=== PATIENT | female | born 1995 | race Caucasian/White ===

== ENCOUNTER 2017-12-01 01:15 | Emergency (ER) | payer BC ==
[2017-12-01 03:36] LABS: URINE PH (Dip) POC 6.5 (5.0-8.5)
[2017-12-01 03:36] LABS: URINE BLOOD (Dip) POC Negative (NEGATIVE); URINE GLUCOSE (Dip) POC Negative (NEGATIVE); URINE KETONES (Dip) POC Negative (NEGATIVE); URINE LEUKOCYTE EST (Dip) POC Negative (NEGATIVE); URINE NITRITE (Dip) POC Negative (NEGATIVE); URINE TOTAL PROTEIN POC Negative (NEGATIVE)
[2017-12-01] MEDS: LIDOCAINE/MYLANTA 40 ML BTL PO (03:50)
[2017-12-01 04:03] LABS: ADD MAN DIFF? NO
[2017-12-01 04:08] LABS: WHITE BLOOD COUNT 8.7 10^3/ul (4.8-10.8)
[2017-12-01 04:08] LABS: BASOPHILS % 0.3 % (0.0-2.0); EOSINOPHILS # 0.1 10^3/ul (0.0-0.5); EOSINOPHILS % 1.6 % (0.0-7.0); HEMATOCRIT 40.8 % (37.0-47.0); LYMPHOCYTES # 1.4 10^3/ul (0.8-2.9); LYMPHOCYTES % 15.6 % (18.0-55.0); MEAN CORPUSCULAR HGB CONC 34.3 g/dl (32.0-37.0); MEAN CORPUSCULAR VOLUME 90.3 fl (72.0-104.0); MEAN PLATELET VOLUME 11.2 fl (7.4-10.4); MONOCYTE # 0.7 10^3/ul (0.3-0.9); MONOCYTES % 8.4 % (0.0-13.0); NEUTROPHIL # 6.4 10^3/ul (1.6-7.5); NEUTROPHILS % 73.8 % (30.0-74.0); PLATELET COUNT 260 10^3/UL (140-415); RED BLOOD COUNT 4.52 10^6/ul (4.20-5.40)
[2017-12-01 04:24] LABS: ALANINE AMINOTRANSFERASE 21 IU/L (13-69); ALBUMIN 4.8 g/dl (3.3-4.9); ALBUMIN/GLOBULIN RATIO 1.29; ALKALINE PHOSPHATASE 94 IU/L (42-121); ANION GAP 19 (8-16); ASPARTATE AMINO TRANSFERASE 20 IU/L (15-46); BILIRUBIN,INDIRECT 0.1 mg/dl (0-1.1); BILIRUBIN,TOTAL 0.1 mg/dl (0.2-1.3); BLOOD UREA NITROGEN 13 mg/dl (7-20); CARBON DIOXIDE 26 mmol/L (21-31); CHLORIDE 104 mmol/L (97-110); CREATININE 0.72 mg/dl (0.44-1.00); GLUCOSE 103 mg/dl (70-220); LIPASE 52 U/L (23-300); POTASSIUM 3.9 mmol/L (3.5-5.1); SODIUM 145 mmol/L (135-144); TOTAL PROTEIN 8.5 g/dl (6.1-8.1)
[2017-12-01] MEDS: KETOROLAC 15 MG INJ IV (05:19)
== END 2017-12-01 05:38 | disposition home or self-care (01) ==
LOC: E/R 01:15
DX: R10.13 Epigastric pain (principal)
CPT/HCPCS: 36415; 80053; 81003; 81025; 83690; 85025; 96374; 99284-25

== ENCOUNTER 2018-01-02 05:46 | Day surgery (SDC) | payer BC ==
[2018-01-02] MEDS ORDERED: MIDAZOLAM 1 MG/ML 2 ML INJ ×2 (07:43)
[2018-01-02] MEDS ORDERED: FENTAnyl 50 MCG/ML VIAL (07:43)
== END 2018-01-02 10:37 | disposition home or self-care (01) ==
LOC: GIL 05:46
DX: K21.9 Gastro-esophageal reflux disease without esophagitis (principal); K29.60 Other gastritis without bleeding
CPT/HCPCS: 43239; 84703; 88305; 88312

== ENCOUNTER 2018-03-21 09:15 | Emergency (ER) | payer BC ==
[2018-03-21] MEDS: ONDANSETRON 4 MG INJ IV (09:45)
[2018-03-21] MEDS: DIPHENHYDRAMINE 50 MG INJ IV (09:45)
[2018-03-21] MEDS: FAMOTIDINE 20 MG INJ IV (09:45)
[2018-03-21] MEDS: SOD CHLORIDE 0.9% 1,000 ML IV (09:45)
[2018-03-21] MEDS: METHYLPREDNISOLONE 125 MG INJ IV (09:46)
[2018-03-21] MEDS ORDERED: SOD CHLORIDE 0.9% 1,000 ML IV (10:00)
[2018-03-21] MEDS: IBUPROFEN 800 MG TAB PO (10:05)
== END 2018-03-21 10:51 | disposition home or self-care (01) ==
LOC: FTE 09:15
DX: J02.9 Acute pharyngitis, unspecified (principal)
CPT/HCPCS: 96374; 96375; 99284-25

== ENCOUNTER 2018-11-12 23:22 | Observation (INO) | payer BC ==
[2018-11-12 23:57] LABS: ADD MAN DIFF? NO
[2018-11-12] MEDS: CEFEPIME 2GM/50 ML (PMX) 50 ML IVPB (23:59)
[2018-11-12] MEDS: SODIUM CHLORIDE 0.9% 1L BAG IV* (23:59)
[2018-11-12] MEDS: ACETAMINOPHEN 325 MG TAB PO (23:59)
[2018-11-13 00:04] LABS: WHITE BLOOD COUNT 5.2 10^3/ul (4.8-10.8)
[2018-11-13 00:04] LABS: ABNORMAL IP MESSAGE 1; BASOPHILS % 0.2 % (0.0-2.0); EOSINOPHILS % 0.4 % (0.0-7.0); HEMATOCRIT 39.1 % (37.0-47.0); HEMOGLOBIN 13.2 g/dl (12.0-16.0); LYMPHOCYTES # 0.2 10^3/ul (0.8-2.9); LYMPHOCYTES % 3.8 % (18.0-55.0); MEAN CORPUSCULAR HEMOGLOBIN 30.3 pg (29.0-33.0); MEAN CORPUSCULAR HGB CONC 33.8 g/dl (32.0-37.0); MEAN CORPUSCULAR VOLUME 89.7 fl (72.0-104.0); MEAN PLATELET VOLUME 10.8 fl (7.4-10.4); MONOCYTE # 0.6 10^3/ul (0.3-0.9); MONOCYTES % 12.2 % (0.0-13.0); NEUTROPHIL # 4.4 10^3/ul (1.6-7.5); NEUTROPHILS % 83.2 % (30.0-74.0); PLATELET COUNT 203 10^3/UL (140-415); RED BLOOD COUNT 4.36 10^6/ul (4.20-5.40); RED CELL DISTRIBUTION WIDTH 11.9 % (11.5-14.5)
[2018-11-13 00:06] LABS: POSITIVE DIFF @See below
[2018-11-13 00:13] LABS: ADD UMIC NO; UR ASCORBIC ACID 40 mg/dL (NEGATIVE); UR BACTERIA FEW /HPF (NONE SEEN); UR BILIRUBIN (Dip) NEGATIVE (NEGATIVE); UR BLOOD (Dip) NEGATIVE (NEGATIVE); UR CLARITY SLIGHTLY CLOUDY (CLEAR); UR COLOR YELLOW (YELLOW); UR GLUCOSE (Dip) NEGATIVE (NEGATIVE); UR KETONES (Dip) NEGATIVE (NEGATIVE); UR LEUKOCYTE ESTERASE (Dip) NEGATIVE Leu/ul (NEGATIVE); UR MUCUS FEW /HPF (NONE SEEN); UR NITRITE (Dip) NEGATIVE (NEGATIVE); UR RBC 1 /HPF (0-5); UR SPECIFIC GRAVITY (Dip) 1.019 (1.003-1.030); UR SQUAMOUS EPITHELIAL CELL FEW /HPF (FEW); UR TOTAL PROTEIN (Dip) NEGATIVE (NEGATIVE); UR UROBILINOGEN (Dip) NEGATIVE (NEGATIVE); UR WBC 3 /HPF (0-5)
[2018-11-13 00:27] LABS: ALANINE AMINOTRANSFERASE 28 IU/L (13-69); ALBUMIN 4.8 g/dl (3.3-4.9); ALBUMIN/GLOBULIN RATIO 1.37; ALKALINE PHOSPHATASE 76 IU/L (42-121); ANION GAP 16 (5-13); ASPARTATE AMINO TRANSFERASE 32 IU/L (15-46); BILIRUBIN,INDIRECT 0.1 mg/dl (0-1.1); BILIRUBIN,TOTAL 0.1 mg/dl (0.2-1.3); BLOOD UREA NITROGEN 6 mg/dl (7-20); CARBON DIOXIDE 23 mmol/L (21-31); CHLORIDE 101 mmol/L (97-110); CREATININE 0.68 mg/dl (0.44-1.00); Estimated GFR > 60 mL/min (>60); GLUCOSE 133 mg/dl (70-220); POTASSIUM 3.4 mmol/L (3.5-5.1); SODIUM 140 mmol/L (135-144); TOTAL PROTEIN 8.3 g/dl (6.1-8.1)
[2018-11-13 00:31] LABS: INR 0.95; PROTIME 12.8 Sec (11.9-14.9)
[2018-11-13] MEDS: DEXAMETHASONE 10 MG/ML 1 ML INJ IV (00:33)
[2018-11-13] MEDS: KETOROLAC 30 MG INJ IV (00:33)
[2018-11-13 00:36] LABS: TROPONIN-I < 0.012 ng/ml (0.000-0.120)
[2018-11-13] MEDS: VANCOMYCIN 1 GM (PMX) 250 ML IVPB (00:44)
[2018-11-13] MEDS ORDERED: IBUPROFEN 600 MG TAB PO (02:30)
[2018-11-13] MEDS ORDERED: HYDROCODONE/APAP (5/325) TAB PO (02:30)
[2018-11-13] MEDS ORDERED: DOCUSATE SODIUM 100 MG CAP PO (02:30)
[2018-11-13] MEDS ORDERED: NACL 0.9% 3 ML SYG IV (02:30)
[2018-11-13] MEDS ORDERED: BISACODYL (EC) 5 MG TAB PO (02:30)
[2018-11-13] MEDS ORDERED: METOCLOPRAMIDE 10 MG INJ IV (02:30)
[2018-11-13] MEDS: OSELTAMIVIR 75 MG CAP PO (03:03)
[2018-11-13] MEDS: SOD CHLORIDE 0.9% 1,000 ML IV (03:04)
[2018-11-13] MEDS: ONDANSETRON 4 MG INJ IV (04:08)
[2018-11-13 04:13] LABS: LACTIC ACID 0.9 mmol/L (0.5-2.0)
[2018-11-13] MEDS ORDERED: morphine 2 MG INJ IV (04:30)
[2018-11-13] MEDS: LIDOCAINE/MYLANTA 40 ML BTL PO (04:30)
[2018-11-13] MEDS: PANTOPRAZOLE (EC) 40 MG TAB PO (06:30)
[2018-11-13] MEDS: POTASSIUM CHLORIDE (SR) 20 MEQ TAB PO (07:32)
[2018-11-13] MEDS: ACETAMINOPHEN 325 MG TAB PO (13:30)
[2018-11-13] MEDS ORDERED: OSELTAMIVIR 75 MG CAP PO (21:00)
== END 2018-11-13 14:08 | disposition home or self-care (01) ==
LOC: E/R 23:22 → MS3 11-13 02:26
DX: J11.1 Influenza due to unidentified influenza virus with other respiratory manifestations (principal)
CPT/HCPCS: 36415; 71045; 80053; 81001; 81003; 81025; 83605; 84484; 85025; 85610; 85730; 87040; 87086; 87400; 93005; 96374; 96375; 99285-25

== ENCOUNTER 2019-04-03 22:07 | Emergency (ER) | payer BC ==
[2019-04-04] MEDS: IBUPROFEN 600 MG TAB PO (01:08)
== END 2019-04-04 02:52 | disposition home or self-care (01) ==
LOC: FTE 22:07
DX: S46.912A Strain of unspecified muscle, fascia and tendon at shoulder and upper arm level, left arm, initial encounter (principal); X58.XXXA Exposure to other specified factors, initial encounter; Y92.9 Unspecified place or not applicable
CPT/HCPCS: 73030; 81025; 99283-25